=== PATIENT | female | born 1995 | race African-American/Black ===

== ENCOUNTER 2016-12-13 13:55 | Emergency (ER) | payer OTHER ==
[~2016-12-13] VITALS: Ht 162.6 cm; Wt 55.0 kg
[~2016-12-13 13:55] MED LIST: PREN-88 PO
[2016-12-13 14:45] VITALS: BP 146/76
== END 2016-12-13 15:07 | disposition home or self-care (01) ==
LOC: ER 13:56
DX: T65.891A Toxic effect of other specified substances, accidental (unintentional), initial encounter (principal); H57.13 Ocular pain, bilateral; Y92.810 Car as the place of occurrence of the external cause
CPT/HCPCS: 99283

== ENCOUNTER 2018-09-10 01:33 | Emergency (ER) | payer OTHER ==
[~2018-09-10] VITALS: Ht 167.6 cm; Wt 54.0 kg
[2018-09-10 03:16] VITALS: BP 143/63
== END 2018-09-10 04:15 | disposition home or self-care (01) ==
LOC: ER 01:33
DX: F10.129 Alcohol abuse with intoxication, unspecified (principal); Y90.7 Blood alcohol level of 200-239 mg/100 ml; V49.49XA Driver injured in collision with other motor vehicles in traffic accident, initial encounter; Y93.89 Activity, other specified; Y92.89 Other specified places as the place of occurrence of the external cause; Y99.8 Other external cause status
CPT/HCPCS: 36415; 80320; 99283; G0480

== ENCOUNTER 2020-04-10 13:05 | Emergency (ER) | payer MEDICAID, OTHER ==
[~2020-04-10] VITALS: Ht 165.1 cm; Wt 50.0 kg
[2020-04-10] MEDS ORDERED: KETOROLAC 30MG/ML VIAL IM ONE (14:00)
[2020-04-10 14:53] VITALS: BP 120/78
== END 2020-04-10 14:50 | disposition home or self-care (01) ==
LOC: ER 13:05
DX: S20.219A Contusion of unspecified front wall of thorax, initial encounter (principal); R51.9 Headache, unspecified; Y92.488 Other paved roadways as the place of occurrence of the external cause; V49.49XA Driver injured in collision with other motor vehicles in traffic accident, initial encounter; Y93.89 Activity, other specified
CPT/HCPCS: 71045; 81025; 96372; 99283; J1885

== ENCOUNTER 2021-10-11 17:42 | Emergency (ER) | payer MEDICAID ==
[~2021-10-11] VITALS: Ht 165.1 cm; Wt 53.0 kg
[2021-10-11] MEDS ORDERED: IBUP-2028 MT (20:37)
[2021-10-11] MEDS ORDERED: KETOROLAC 60MG/2ML VIAL IM ONE (20:45)
[2021-10-11 21:23] VITALS: BP 115/76
== END 2021-10-11 21:26 | disposition home or self-care (01) ==
LOC: ER 17:42
DX: S92.909A Unspecified fracture of unspecified foot, initial encounter for closed fracture (principal); W18.30XA Fall on same level, unspecified, initial encounter; Y93.89 Activity, other specified; Y92.89 Other specified places as the place of occurrence of the external cause; Y99.8 Other external cause status
CPT/HCPCS: 73610; 73630; 99284